=== PATIENT | female | born 1995 | race Caucasian/White ===

== ENCOUNTER 2017-07-11 07:47 | Emergency (ER) | payer OTHER ==
[2017-07-11] MEDS ORDERED: methylPREDNISolone 125 MG* 2 ML VIAL IM ONE (07:51)
[2017-07-11] MEDS ORDERED: diPHENhydraMINE PO* 50 MG PO ONE (07:51)
--- NOTE | 2017-07-11 08:18 | UC ---
Allergic Reaction HPI - HPI Summary HPI Summary: C/O throat tightening. Not sure of the allergic cause. Took epi pen at 6:30 am. Throat tightening is a little better. - History of Current Complaint Stated Complaint: THROAT TIGHTNESS Time Seen by Provider: 07/11/17 07:51 Hx Obtained From: Patient Hx Last Menstrual Period: 1-2 weeks ?: No Onset/Duration: Sudden Onset - this morning, Still Present Severity Initially: Moderate Severity Currently: Moderate Character: Swelling - in the throat Aggravating Factor(s): Nothing Alleviating Factor(s): Epinephrine Associated Signs And Symptoms: Positive: Hoarseness, Throat Tightening. Negative: Abdominal Pain, Chest Pain, Cough Wheezing, Diaphoresis, Nausea, Rash , Syncope, Vomiting - Related Hx Possible Reaction To: Unknown - Allergies/Home Medications Allergies/Adverse Reactions: Allergies Allergy/AdvReac Type Severity Reaction Status Date / Time No Known Allergies Allergy Verified 07/11/17 08:10 Home Medications: Home Medications Desloratidine (NF) [Clarinex (NF)] 5 mg PO DAILY 07/11/17 [History Confirmed ] Epi-Pen 1 inj IM ONCE PRN 07/11/17 [History Confirmed 07/11/17] Levocetirizine Dihydrochloride [Levocetirizine Dihydrochl] 1 tab PO QPM [History Confirmed 07/11/17] Minocycline HCl 100 mg PO DAILY 07/11/17 [History Confirmed 07/11/17] O C 1 tab PO DAILY 07/11/17 [History Confirmed 07/11/17] PMH/Surg Hx/FS Hx/Imm Hx Previously Healthy: Yes - Surgical History Surgical History: Yes Surgery Procedure, Year, and Place: root canal - Family History Known Family History: Positive: Diabetes - Social History Occupation: Employed Full-time, Student Lives: With Family Alcohol Use: Occasionally Substance Use Type: None Smoking Status (MU): Never Smoked Tobacco Have You Smoked in the Last Year: No Review of Systems ENT: Sore Throat, Nasal Discharge Respiratory: Cough Is Patient Immunocompromised?: No All Other Systems Reviewed And Are Negative: Yes Physical Exam Triage Information Reviewed: Yes Appearance: No Pain Distress, Well-Nourished, Ill-Appearing Vital Signs: Initial Vital Signs Temp 98.2 F 07/11/17 08:04 Pulse 81 07/11/17 08:04 Resp 22 11/18/17 08:04 BP 107/66 07/11/17 08:04 Pulse Ox 100 07/11/17 08:04 Vital Signs Reviewed: Yes Eyes: Positive: Conjunctiva Clear ENT: Positive: Nasal congestion, TMs normal, Uvula midline - and diffusely swollen Neck exam: Normal Respiratory Exam: Normal Cardiovascular Exam: Normal Abdomen Description: Negative: Nontender - mild LLQ tenderness Bowel Sounds: Positive: Present Neurological Exam: Normal Psychological Exam: Normal Skin Exam: Normal Re-Evaluation - Re-Evaluation First Eval Re-Evaluation Time: 08:20 Change: Improved - throat tightening is better. Uvula less swollen Allergic Reaction Course/Dx - Differential Dx/Diagnosis Differential Diagnosis/HQI/PQRI: Anaphylaxis, Angioedema, Local Allergic Reaction Provider Diagnoses: Angioedema of the throat Discharge - Discharge Plan Condition: Stable Disposition: HOME Prescriptions: predniSONE TAB* [Deltasone TAB*] 20 mg PO DAILY #18 tab Patient Education Materials: Angioedema (ED), Methylprednisolone (By injection) , Diphenhydramine (By mouth) Additional Instructions: Carry benadryl at all times along with the epi-pen. Stay well hydrated. MlogMED SINUS RINSE: CHECK OUT AT [employer] Saline nasal wash helps with mucous, allergies and congestion. It can be used up to twice a day or only as needed. Use lukewarm tap water. It does not have to be sterilized or distilled water here in the [facility]. Do 1/3 on each side and snort out of both nostrils. Repeat the process with 1/6 of the bottle on each side with snorting in between to finish the solution in the bottle
[2017-07-11 08:40] VITALS: BP 115/70
== END 2017-07-11 08:57 | disposition home or self-care (01) ==
LOC: UCCORT 07:47
DX: T78.3XXA Angioneurotic edema, initial encounter (principal); R49.0 Dysphonia; R05 Cough; R09.81 Nasal congestion
CPT/HCPCS: 96372; 99202; A9270-GY; G0463; J2930

== ENCOUNTER 2017-11-26 15:22 | Emergency (ER) | payer BC, OTHER ==
--- NOTE | 2017-11-26 16:08 | ED ---
Upper Extremity Pain - HPI Summary HPI Summary: Patient is a 22-year-old female who presents to emergency department for evaluation of ongoing left wrist pain times several months. Patient does not recall any specific injuries or falls that preceded pain. 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 Pain is exacerbated by extending wrist and bearing weight. Patient also states she has noticed a bump to the top of her wrist but is painful. Symptoms are mild in severity. - History of Current Complaint Chief Complaint: EDExtremityUpper Stated Complaint: LT WRIST PAIN Time Seen by Provider: 11/26/17 15:32 Hx Obtained From: Patient Hx Last Menstrual Period: 1-2 weeks Character: Sharp, Aching Aggravating Factor(s): Movement Alleviating Factor(s): Nothing Associated Signs & Symptoms: Negative: Swelling, Redness, Bruising - Allergies/Home Medications Allergies/Adverse Reactions: Allergies Allergy/AdvReac Type Severity Reaction Status Date / Time No Known Allergies Allergy Verified 07/11/17 08:10 PMH/Surg Hx/FS Hx/Imm Hx Previously Healthy: Yes - Surgical History Surgery Procedure, Year, and Place: root canal Infectious Disease History: No Infectious Disease History: Denies: Traveled Outside the [place] in Last 30 Days - Family History Known Family History: Positive: Diabetes - Social History Occupation: Employed Full-time Alcohol Use: Rare Substance Use Type: Reports: None Smoking Status (MU): Never Smoked Tobacco Have You Smoked in the Last Year: No Review of Systems Constitutional: Negative Positive: Other - Pain to left wrist Skin: Negative Neurological: Negative Negative: Weakness, Paresthesia, Numbness All Other Systems Reviewed And Are Negative: Yes Physical Exam Triage Information Reviewed: Yes Vital Signs On Initial Exam: Initial Vitals Temp Pulse Resp BP Pulse Ox 98.4 F 75 16 125/89 100 11/26/17 15:29 11/26/17 15:29 11/26/17 15:29 11/26/17 15:29 11/26/17 15:29 Vital Signs Reviewed: Yes Skin: Positive: Warm, Dry Head/Face: Positive: Normal Head/Face Inspection Eyes: Positive: Normal Musculoskeletal: Positive: Other - Small freely movable mass noted to the left wrist on the dorsal aspect. Full ROM of wrist. Good radial pulse. No erythema, edema or wounds. Diagnostics - Vital Signs Vital Signs Temp Pulse Resp BP Pulse Ox 11/26/17 15:29 98.4 F 75 16 125/89 100 - Laboratory Lab Statement: Any lab studies that have been ordered have been reviewed, and results considered in the medical decision making process. Course/Dx - Course Course Of Treatment: Patient presenting with ongoing left wrist pain without injury. Her exam is consistent with a ganglion cyst. Advised her treatment is mostly supportive. Velcro wrist splint placed for comfort. She was given information for orthopedics for follow-up. Advised to ice and elevate intermittently. Tylenol or Motrin for pain as directed. Activity as tolerated. - Diagnoses Provider Diagnoses: Ganglion cyst Discharge - Sign-Out/Discharge Documenting (check all that apply): Discharge - Discharge Plan Condition: Good Disposition: HOME Patient Education Materials: Ganglion Cysts (ED) Referrals: DHEERAJ Fuchs [Primary Care Provider] - Callum Ortiz MD [Medical Doctor] - Additional Instructions: Schedule a follow up appointment with orthopedics Wear splint for comfort Ice and elevate Activity as tolerated Tylenol or Motrin for pain as directed - Billing Disposition and Condition Condition: GOOD Disposition: HOME
[2017-11-26 16:21] VITALS: BP 108/68
== END 2017-11-26 16:13 | disposition home or self-care (01) ==
LOC: ED 15:22
DX: M67.432 Ganglion, left wrist (principal); M25.532 Pain in left wrist
CPT/HCPCS: 99282

== ENCOUNTER 2018-06-10 08:36 | Day surgery (SDC) | payer BC ==
[~2018-06-10 08:36] MED LIST: Buffered Lidocaine 0.9% SYRIN* 5 ML/SYR SYRINGE INTRADERM ONE; Dexamethasone IV* 4 MG/ML 1 ML (4 MG) IV SLOW PU ONE; Famotidine IV* 10 MG/ML 2 ML (20 mg) IV ONE
[2018-06-10] MEDS ORDERED: ceFAZolin 2 GM PREMIX in ORs 2 GM/50 ML BAG IVPB ONE (09:05)
[2018-06-10] MEDS ORDERED: Dexamethasone IV* 4 MG/ML 1 ML (4 MG) ONE (09:08)
[2018-06-10] MEDS ORDERED: Famotidine IV* 10 MG/ML 2 ML (20 mg) ONE (09:09)
[2018-06-10] MEDS ORDERED: fentaNYL* 50 MCG/ML 2 ML VIAL (100 MCG VIAL) ONE ×2 (09:56→12:31)
[2018-06-10] MEDS ORDERED: Propofol* 10 MG/ML 20 ML BTL IV PUSH ONE (09:56)
[2018-06-10] MEDS ORDERED: Lidocaine 2% PF * 5 ML VIAL ONE (09:56)
[2018-06-10] MEDS ORDERED: ROPIVACAINE 5 MG/ML 30 ML BTL (0.5%) ONE ×2 (10:36→12:54)
[2018-06-10] MEDS ORDERED: fentaNYL* 50 MCG/ML 2 ML VIAL (100 MCG VIAL) IV PRN (12:10)
[2018-06-10] MEDS ORDERED: Naloxone* 0.4 MG/ML 1 ML VIAL IV PRN (12:10)
[2018-06-10] MEDS ORDERED: DiMENhydriNATE IV* 50 MG/ML VIAL IV PUSH PRN (12:10)
[2018-06-10] MEDS ORDERED: Ketorolac INJ* 30 MG/ML 1 ML VIAL ONE (12:11)
[2018-06-10] MEDS ORDERED: Ondansetron INJ* 2 MG/ML VIAL ONE (12:11)
[2018-06-10 14:23] VITALS: BP 109/66
--- NOTE | 2018-06-11 07:00 | OP ---
OPERATIVE REPORT: DATE OF OPERATION: 06/10/18 DATE OF : 89 SURGEON: Callum Ortiz MD ROLL FORMING MACHINE SET UP OPERATOR: RUSTAM Kat ANESTHESIOLOGIST: Dr. Schulz. ANESTHESIA: General. 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 POST-OP DIAGNOSIS: Chronic left thumb metacarpal phalangeal joint ulnar collateral ligament insuffic iency. OPERATIVE PROCEDURE: Reconstruction of left thumb metacarpal phalangeal joint ulnar collateral ligam ent with split flexor carpi radialis tendon graft. INDICATIONS: Pamela had an injury back when she was in middle school. 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 We had talked about treatment options, risks, and benefits. She wanted to proceed w ith surgery. She understands there is a risk of stiffness or instability despite surgery. She wants to proceed. ESTIMATED BLOOD LOSS: 2 mL. COMPLICATIONS: None. FINDINGS: See above and below. DESCRIPTION OF PROCEDURE: Pamela was seen in the preoperative holding area. The correct site, side, and procedure were identified. We came back to the operating room where the arm was prepped and chuy ped in the usual fashion. A time-out was performed. The arm was exsanguinated and the tourniquet inflated to 250 mmHg. I made a lazy S incision over the ulnar aspect of the left thumb MCP joint in the first web space. Dissection was carried down the add uctor aponeurosis, was split longitudinally and retracted dorsally and volarly. The degenerative tis antoinette in the area of the ulnar collateral ligament was excised with a Lynn blade exposing the base of the proximal phalanx as well as the collateral ligament recess. I curetted off the remaining soft t issue. I then used sequentially larger drill bits to create an ultimately 3.2 mm unicortical bone tu nnel in the metacarpal head centered at the isometric point. I then used a 2.0, followed by 2.4 mm d rill bit to create a bone tunnel in the base of the proximal phalanx starting from the 11 o'clock, go ing down to the 7 o'clock position. Everything was irrigated out, returned our attention to harvesti ng the graft. I made two 1-cm transverse incisions, one at the distal aspect of the FCR tendon just proximal to the wrist flexion crease and another about 7 or 8 cm proximal to that. The sheath was released. The te ndon was split and I harvested about 25% of the tendon by pulling a 26-gauge wire under the skin comp leting the split proximally and releasing it proximally and distally with a knife. I whipstitched a 2-0 FiberWire suture into the proximal end of the tendon graft. The tendon graft was then suture shuttled with an 0 Prolene suture through the bone tunnel in the bas e of the proximal phalanx. Once I had the graft through that bone tunnel, I went ahead and took 2 K- wire and drilled then across the unicortical bone tunnel and out the radial cortex of the metacarpal head, 1 Marcio needle was brought out proximally and 1 distally about a centimeter long bone bridge an d between the 2. The 2 tails of my 2-0 FiberWire were brought out with each respective Marcio needle proximally and distally. I then measured my graft and cut it to size. I placed another 2-0 FiberWire whipstitch i n the other end of the tendon graft. The Marcio needles were in similar fashion used to pass the tail s of the FiberWire proximally and distally up the radial cortex. I then pulled the sutures to duck b oth ends of the tendon graft into the metacarpal head bone tunnel. I held appropriate tension and ti ed off the sutures over the radial cortex. This provided a very tight and secure reconstruction. Th e MCP joint was now completely stable at 0 and 30 degrees. There was good flexion and extension of t he MCP joint. Overall, the alignment was looking very good, so we irrigated out the wound. I did pl jj a 4-0 Ethibond suture connecting my 2 tails of my tendon graft on the ulnar side just to further add some security to the reconstruction. A 4-0 Vicryl suture was used to close the soft tissue over the knot and buried the knot on the radial wound. Skin was then closed with 4-0 nylon suture. The ad ductor aponeurosis was repaired with 4-0 Ethibond suture and then the skin was closed with 4-0 nylon suture. The 2 wounds in the forearm were closed with 4-0 nylon suture. Ropivacaine was infiltrated all about the operative area. The thumb was placed in a well-padded thumb spica splint preventing an y abduction movement on the thumb. The tourniquet was deflated and the thumb pinked up immediately. She was taken to the recovery room in stable condition. [id number]/[facility] #: [id number]
== END 2018-06-10 14:05 | disposition home or self-care (01) ==
LOC: OREAST 08:36
PROVIDERS: ATTEND Orthopaedic Surgery Hand Surgery
DX: M25.342 Other instability, left hand (principal); J45.909 Unspecified asthma, uncomplicated
CPT/HCPCS: 81025; J0690; J1100; J1885; J2405; J2704; J2795; J3010

== ENCOUNTER 2018-11-09 19:28 | Emergency (ER) | payer BC ==
[2018-11-09 19:43] VITALS: BP 131/88
[2018-11-09] MEDS ORDERED: Famotidine TAB* 20 MG PO ONE ×2 (19:47→19:48)
[2018-11-09] MEDS ORDERED: predniSONE TAB* 20 MG PO ONE ×2 (19:47→19:48)
[2018-11-09] MEDS ORDERED: diPHENhydraMINE PO* 50 MG PO ONE (19:48)
--- NOTE | 2018-11-09 19:49 | UC ---
Skin Complaint HPI - HPI Summary HPI Summary: 23-year-old woman comes in with chief complaint of swollen left upper lip. She noticed it this morning. Ever since she was 16 years old she gets intermittent swelling in various parts of her body. He's of asthma 24 hours. She has seen an arcgis developer before. She did take an antihistamine and some old prednisone prior to arrival. These are not helping to decrease the swelling. Patient says the area does itch. Swelling is not into the mouth denies any problems with swallowing or breathing or shortness of breath. - History of Current Complaint Chief Complaint: UCAllergicReaction Time Seen by Provider: 11/09/18 19:35 Stated Complaint: LIP COMPLAINT Hx Last Menstrual Period: 3 weeks ago Pain Intensity: 0 - Allergy/Home Medications Allergies/Adverse Reactions: Allergies Allergy/AdvReac Type Severity Reaction Status Date / Time No Known Allergies Allergy Verified 11/09/18 19:43 Home Medications: Home Medications Cetirizine HCl/Pseudoephedrine [Zyrtec-D Tablet] 1 tab PO DAILY 11/09/18 [ History Confirmed 11/09/18] PMH/Surg Hx/FS Hx/Imm Hx Previously Healthy: Yes - Surgical History Surgical History: Yes Surgery Procedure, Year, and Place: root canal - Family History Known Family History: Positive: Diabetes - Social History Alcohol Use: Occasionally Substance Use Type: None Smoking Status (MU): Never Smoked Tobacco Have You Smoked in the Last Year: No Review of Systems All Other Systems Reviewed And Are Negative: Yes Constitutional: Positive: Negative Skin: Positive: Other - see hpi Eyes: Positive: Negative ENT: Positive: Other - see hpi Respiratory: Positive: Negative Cardiovascular: Positive: Negative Gastrointestinal: Positive: Negative Motor: Positive: Negative Neurovascular: Positive: Negative Musculoskeletal: Positive: Negative Neurological: Positive: Negative Psychological: Positive: Negative Is Patient Immunocompromised?: No Physical Exam Triage Information Reviewed: Yes Appearance: Well-Appearing, No Pain Distress, Well-Nourished Vital Signs: Initial Vital Signs Temp 99.7 F 11/09/18 19:40 Pulse 91 11/09/18 19:40 Resp 17 11/09/18 19:40 BP 131/88 11/09/18 19:40 Pulse Ox 99 11/09/18 19:40 Vital Signs Reviewed: Yes Eye Exam: Normal Eyes: Positive: Conjunctiva Clear ENT: Positive: Pharynx normal, Uvula midline, Other - UPPER LIP ON LEFT IS SWOLLEN. OROPHARYNX IS OPEN.. Negative: Muffled voice, Hoarse voice Neck exam: Normal Neck: Positive: Supple Respiratory: Positive: Lungs clear, Normal breath sounds, No respiratory distress Cardiovascular: Positive: RRR Musculoskeletal Exam: Normal Musculoskeletal: Positive: Strength Intact, ROM Intact Neurological Exam: Normal Neurological: Positive: Alert, Muscle Tone Normal Psychological Exam: Normal Psychological: Positive: Age Appropriate Behavior Skin: Positive: Other - UPPER LIP ON LEFT IS SWOLLEN. Course/Dx - Diagnoses Provider Diagnosis: Allergic reaction, Angioedema Discharge - Sign-Out/Discharge Documenting (check all that apply): Patient Departure All imaging exams completed and their final reports reviewed: No Studies - Discharge Plan Condition: Stable Disposition: HOME Prescriptions: Famotidine TAB* [Pepcid 20 MG TAB*] 20 mg PO BID PRN #8 tab PRN Reason: Allergy Symptoms predniSONE TAB* [Deltasone 20 MG TAB*] 40 mg PO DAILY PRN #8 tab PRN Reason: Allergy Symptoms Patient Education Materials: Angioedema (ED), General Allergic Reaction (ED) Referrals: [facility] [Outside] Dante Keller MD [Medical Doctor] - - Billing Disposition and Condition Condition: STABLE Disposition: Home
== END 2018-11-09 20:10 | disposition home or self-care (01) ==
LOC: UCEAST 19:28
DX: T78.3XXA Angioneurotic edema, initial encounter (principal); T78.40XA Allergy, unspecified, initial encounter; X58.XXXA Exposure to other specified factors, initial encounter; Y92.9 Unspecified place or not applicable
CPT/HCPCS: 99213; A9270-GY; G0463; J7512

== ENCOUNTER 2019-05-22 16:17 | Emergency (ER) | payer BC ==
[2019-05-22 17:14] VITALS: BP 112/59
--- NOTE | 2019-05-22 17:41 | UC ---
Complaint Female HPI - HPI Summary HPI Summary: Dysuria for 4 days w/ no other symptoms. using bc pills. has had uti in the past. - History Of Current Complaint Chief Complaint: UCGU Stated Complaint: URINARY Time Seen by Provider: 05/22/19 17:02 Hx Obtained From: Patient Hx Last Menstrual Period: 25 days Pain Intensity: 8 Pain Scale Used: 0-10 Numeric Character: Burning Aggravating Factor(s): Urination Alleviating Factor(s): Nothing Associated Signs And Symptoms: Negative: Back Pain, Vaginal Bleeding/Discharge - Allergies/Home Medications Allergies/Adverse Reactions: Allergies Allergy/AdvReac Type Severity Reaction Status Date / Time No Known Allergies Allergy Verified 05/24/19 11:56 Home Medications: Home Medications Cetirizine* [ZyrTEC 10 MG TAB*] 10 mg PO DAILY PRN 05/22/19 [History Confirmed 05/22/19] Desogestrel-Ethinyl Estradiol [Enskyce 28 Tablet] 1 each PO QPM 05/22/19 [ History Confirmed 05/22/19] L.acidoph,Paracasei, B.lactis [Probiotic] 1 each PO DAILY 05/22/19 [History Confirmed 05/22/19] PMH/Surg Hx/FS Hx/Imm Hx - Additional Past Medical History Additional PMH: no chronic condition Previously Healthy: Yes - Surgical History Surgical History: Yes Surgery Procedure, Year, and Place: root canal; 2018 left thumb - Family History Known Family History: Positive: Diabetes - Social History Alcohol Use: Occasionally Substance Use Type: None Smoking Status (MU): Never Smoked Tobacco Have You Smoked in the Last Year: No Review of Systems All Other Systems Reviewed And Are Negative: Yes Constitutional: Negative: Fever Gastrointestinal: Negative: Abdominal Pain Genitourinary: Positive: Dysuria. Negative: Hematuria, Vaginal/Penile Burning, Vaginal/Penile Discharge Musculoskeletal: Negative: Other: - denies back pain Physical Exam Triage Information Reviewed: Yes Appearance: Well-Appearing Vital Signs: Initial Vital Signs Temp 100 F 05/22/19 16:57 Pulse 95 05/22/19 16:57 Resp 20 05/22/19 16:57 BP 112/59 05/22/19 16:57 Pulse Ox 100 05/22/19 16:57 Vital Signs Reviewed: Yes Respiratory Exam: Normal Cardiovascular Exam: Normal Abdomen Description: Positive: Nontender, Soft. Negative: CVA Tenderness (R), CVA Tenderness (L) Psychological: Positive: Age Appropriate Behavior Skin: Negative: Rashes Complaint Female Dx - Course Course Of Treatment: Acute dysuria w/ a normal exam and good vitals. UA demonstrated UTI, will tx. discussed hydration and will await sti results. - Differential Dx/Diagnosis Differential Diagnosis/HQI/PQRI: Sexually Transmitted Disease, Urinary Tract Infection Provider Diagnosis: UTI (urinary tract infection) Discharge ED - Sign-Out/Discharge Documenting (check all that apply): Patient Departure All imaging exams completed and their final reports reviewed: No Studies - Discharge Plan Condition: Good Disposition: HOME Prescriptions: Nitrofurantoin Monohyd/M-Cryst [Macrobid 100 mg Capsule] 100 mg PO BID 7 Days # 14 cap Patient Education Materials: Dysuria (ED) Referrals: No Primary Care Phys,NOPCP [Primary Care Provider] - - Billing Disposition and Condition Condition: GOOD Disposition: Home - Attestation Statements Provider Attestation: I was available for consult. This patient was seen by the [facility]. The patient was not presented to , seen by or examined by pa -Nadine Barrera MD
[2019-05-24 13:31] LABS: Chlamydia trachomatis NAA Negative (Negative); Neisseria gonorrhoeae (GC) NAA Negative (Negative)
== END 2019-05-22 17:53 | disposition home or self-care (01) ==
LOC: UCCORT 16:17
DX: N39.0 Urinary tract infection, site not specified (principal)
CPT/HCPCS: 81003; 84702; 87086; 87491; 87591; 99212; G0463

== ENCOUNTER 2019-05-24 11:36 | Emergency (ER) | payer BC ==
--- NOTE | 2019-05-24 11:57 | UC ---
Complaint Female HPI - HPI Summary HPI Summary: Patient is a 23yo female presenting with vaginal itching and irritation that began today. She was seen in the ED two days ago and treated with an antibiotic for a UTI. Notes itching, swelling, burning, and tenderness to vulva. Notes thicker discharge but no color change or foul odor. Patient denies concern for STIs and would not like a pelvic exam. Notes her urine was sent for gonorrhea and chlamydia but that she has not heard anything back. Patient notes swollen feeling of the left side of her throat. Denies cold symptoms. States she has had her throat swell in the past to where she cannot breathe. No one has been able to tell her what causes it. She denies SOB or wheezing now. Denies difficulty swallowing. Patient states she usually will take prednisone when these symptoms occur, which helps. - History Of Current Complaint Stated Complaint: PERSONAL Hx Last Menstrual Period: 25 days - Allergies/Home Medications Allergies/Adverse Reactions: Allergies Allergy/AdvReac Type Severity Reaction Status Date / Time No Known Allergies Allergy Verified 05/24/19 11:56 PMH/Surg Hx/FS Hx/Imm Hx Previously Healthy: Yes - Surgical History Surgical History: Yes Surgery Procedure, Year, and Place: root canal; 2018 left thumb - Family History Known Family History: Positive: Diabetes - Social History Alcohol Use: Occasionally Substance Use Type: None Smoking Status (MU): Never Smoked Tobacco Have You Smoked in the Last Year: No Review of Systems All Other Systems Reviewed And Are Negative: Yes Constitutional: Positive: Negative. Negative: Fever, Chills, Fatigue Skin: Positive: Other - vulvar redness, swelling, irritation Eyes: Positive: Negative ENT: Positive: Sore Throat. Negative: Ear Ache, Nasal Discharge, Sinus Congestion, Sinus Pain/Tenderness Respiratory: Positive: Negative. Negative: Shortness Of Breath, Cough Cardiovascular: Positive: Negative. Negative: Palpitations, Chest Pain Gastrointestinal: Positive: Negative Genitourinary: Positive: Negative, Vaginal/Penile Burning, Vaginal/Penile Itching, Vaginal/Penile Discharge, Vaginal/Penile Tenderness. Negative: Dysuria , Hematuria, Frequency, Vaginal/Penile Pain, Ulceration/Lesion, Abnormal Bleeding Musculoskeletal: Positive: Negative Neurological: Positive: Negative Physical Exam Triage Information Reviewed: Yes Appearance: Well-Appearing, No Pain Distress, Well-Nourished Vital Signs: Vital Signs (72 hours) 05/24/19 11:57 Temperature 97.9 F Pulse Rate 96 Respiratory 16 Rate Blood Pressure 132/70 (mmHg) O2 Sat by Pulse 100 Oximetry Vital Signs Reviewed: Yes Eyes: Positive: Conjunctiva Clear ENT Exam: Normal ENT: Positive: Hearing grossly normal, Pharynx normal, Pharyngeal erythema, TMs normal, Uvula midline. Negative: Nasal congestion, Nasal drainage, TM bulging, TM red, Tonsillar swelling, Tonsillar exudate, Trismus, Muffled voice, Hoarse voice, Sinus tenderness Neck exam: Normal Neck: Positive: Supple, Nontender, No Lymphadenopathy Respiratory Exam: Normal Respiratory: Positive: Lungs clear, Normal breath sounds, No respiratory distress, No accessory muscle use. Negative: Crackles, Rhonchi, Stridor, Wheezing Cardiovascular Exam: Normal Cardiovascular: Positive: RRR. Negative: Tachycardia Neurological: Positive: Alert Psychological: Positive: Age Appropriate Behavior Procedures - Sedation Patient Received Moderate/Deep Sedation with Procedure: No Complaint Female Dx - Course Course Of Treatment: Discussed with patient likeliness of yeast infection given symptoms, her lack of concern for STI, recent antibiotic use. Directed her to continue antibiotic and to take diflucan as prescribed for yeast infection. Instructed to return if symptoms persist or worsen. VSS and patient in no respiratory distress. Patient given one dose of prednisone here and prescription for next two day and instructed patient to go to the ED if her throat swelling worsens or she experiences difficulty breathing. Patient voiced understanding and agreed to treatment plan. - Differential Dx/Diagnosis Provider Diagnosis: Vaginal yeast infection, Sensation of swollen throat Discharge ED - Sign-Out/Discharge Documenting (check all that apply): Patient Departure All imaging exams completed and their final reports reviewed: No Studies - Discharge Plan Condition: Stable Disposition: HOME Prescriptions: Fluconazole 150 MG TAB* [Diflucan 150 MG TAB*] 150 mg PO ONCE #2 tablet predniSONE TAB* [Deltasone 10 MG TAB*] 10 mg PO DAILY #2 tab Referrals: Sona Torres MD [Primary Care Provider] - If Needed Additional Instructions: As discussed, take first dose of Diflucan today and the second dose on Thursday for treatment of a yeast infection. You may also use OTC monistat for relief of ithcing as well. Do not use any other products down there, as they may cause further irritation. You were given a dose of prednisone here and you may take prednisone as prescribed for the next two days for your throat swelling. Return or follow up if your symptoms persist or worsen. Go to the emergency room if you experience increased throat swelling or difficulty breathing or swallowing your saliva. - Billing Disposition and Condition Condition: STABLE Disposition: Home
[2019-05-24 12:02] VITALS: BP 132/70
[2019-05-24] MEDS ORDERED: predniSONE TAB* 20 MG PO ONE (12:30)
== END 2019-05-24 12:46 | disposition home or self-care (01) ==
LOC: UCCORT 11:36
DX: B37.3 Candidiasis of vulva and vagina (principal); R09.89 Other specified symptoms and signs involving the circulatory and respiratory systems
CPT/HCPCS: 99212; G0463; J7512